=== PATIENT | female | born 1985 ===

== ENCOUNTER 2025-02-09 14:49 | Outpatient (CLI) | payer OTHER | END 2025-02-09 23:59 | disposition home or self-care (01) | LOC: MRI02 14:49 | PROVIDERS: ATTEND Student in an Organized Health Care Education/Training Program | DX: S40.011D Contusion of right shoulder, subsequent encounter (principal); S66.31 Strain of extensor muscle, fascia and tendon of other and unspecified finger at wrist and hand level; S46.911D Strain of unspecified muscle, fascia and tendon at shoulder and upper arm level, right arm, subsequent encounter; M50.123 Cervical disc disorder at C6-C7 level with radiculopathy; X58.XXXD Exposure to other specified factors, subsequent encounter | CPT/HCPCS: 72141; 73218 ==